=== PATIENT | male | born 1985 | race Two or more races ===

== ENCOUNTER 2024-03-21 15:56 | Emergency (ER) | payer SELFPAY ==
[~2024-03-21] VITALS: Ht 175.3 cm; Wt 113.2 kg
[2024-03-21 16:29] VITALS: TEMP 98
[2024-03-21 17:10] LABS: BASOPHILS % (AUTO) 0.2 % (0.0-2.0); EOSINOPHILS % (AUTO) 0.3 % (1.0-6.0); HEMATOCRIT 51.5 % (41-53); HEMOGLOBIN 17.1 g/dL (13.5-17.5); LYMPHOCYTES # (AUTO) 0.9 K/uL (1.0-4.8); LYMPHOCYTES % (AUTO) 9.4 % (22.0-44.0); MEAN CORPUSCULAR HEMOGLOBIN 28.9 pg (26.0-34.0); MEAN CORPUSCULAR HGB CONC 33.2 G/dL (31.0-37.0); MEAN CORPUSCULAR VOLUME 87 fL (80-100); MONOCYTES # (AUTO) 0.8 K/uL (0.1-1.0); MONOCYTES % (AUTO) 8.3 % (2.0-9.0); NEUTROPHILS # (AUTO) 7.9 K/uL (1.8-7.7); NEUTROPHILS % (AUTO) 81.8 % (40.0-70.0); PLATELET COUNT (AUTO) 117 K/uL (150-450); RED BLOOD CELL COUNT(AUTO) 5.92 MIL/uL (4.50-5.90); RED CELL DISTRIBUTION WIDTH 14.6 % (11.5-14.5); WHITE BLOOD COUNT (AUTO) 9.7 K/uL (4.5-11.0)
[2024-03-21 17:20] LABS: ANION GAP 13 mmol/L (8-16); CALCIUM, TOTAL 8.5 mg/dL (8.8-10.5); CARBON DIOXIDE 23 mmol/L (22-29); CHLORIDE 102 mmol/L (98-107); CREATININE 1.29 mg/dL (0.60-1.30); GLOMERULAR FILTR. RATE CALC > 60 mL/min (>60); GLUCOSE,RANDOM 135 mg/dL (70-110); POTASSIUM 3.9 mmol/L (3.5-5.1); SODIUM SERUM 138 mmol/L (136-145); UREA NITROGEN, BLOOD 20 mg/dL (7-18)
[2024-03-21 17:26] LABS: ALANINE AMINOTRANSFERASE 60 U/L (12-78); ALBUMIN 3.8 g/dL (3.4-5.0); ALKALINE PHOSPHATASE 56 U/L (46-116); ASPARTATE AMINOTRANSFERASE 33 U/L (15-37); BILIRUBIN,TOTAL 0.5 mg/dL (0.1-1.0); LIPASE 84 U/L (16-77); TOTAL PROTEIN, SERUM 8.3 g/dL (6.4-8.2)
[2024-03-21 17:28] LABS: LACTIC ACID 1.2 mmol/L (0.4-2.0)
[2024-03-21] MEDS: ONDANSETRON HCL 4 MG/2 ML VIAL IVP ONE (17:38)
[2024-03-21] MEDS: SODIUM CHLORIDE 0.9% 2,000 ML IV ONE (17:38)
[2024-03-21] MEDS: DIPHENOXYLATE/ATROP 2.5-0.025 MG TABLET PO ONE (17:38)
[2024-03-21 18:19] VITALS: BP 126/72; PULSE 86; RESP 20
[2024-03-21] MEDS ORDERED: DIPH-1130 PO (18:34)
[2024-03-21] MEDS ORDERED: ACET-66 PO (18:34)
[2024-03-21] MEDS ORDERED: ONDA-104 PO (18:34)
[2024-03-21] MEDS ORDERED: SULF-261 PO (18:34)
== END 2024-03-21 19:17 | disposition home or self-care (01) ==
LOC: EMS 15:58
DX: K52.9 Noninfective gastroenteritis and colitis, unspecified (principal); R55 Syncope and collapse; I10 Essential (primary) hypertension
CPT/HCPCS: 99283; 96374; 96361; 80053; 83605; 83690; 85025; 36415; J2405; J7030